=== PATIENT | female | born 1980 | race Caucasian/White ===

== ENCOUNTER 2016-04-25 05:43 | Emergency (ER) | payer OTHER ==
[~2016-04-25] VITALS: Ht 160 cm; Wt 95.3 kg
[~2016-04-25 05:43] MED LIST: FOLIC ACID 1 MG PO; ONDANSETRON4 M1 SL; PROTONIX 40MG T40 MG PO; REGLAN INJ10 MG/2 M1 PO; VITAFOL-ONE1 SGL PO; VITAMIN B1100 MG PO; Vitamin B6 PO; ZOFRAN 4MG ORALL4 MG PO; ZOFRAN ODT4 MG PO
--- NOTE | 2016-04-25 06:05 | ED GI/GU/ABDOMINAL COMPLAINT ---
See Addendum History of Present Illness General Chief Complaint: Chest Pain Stated Complaint: CP Source: patient, old records Exam Limitations: no limitations Vital Signs & Intake/Output Vital Signs & Intake/Output Vital Signs Date Time Temp Pulse Resp B/P Pulse O2 O2 Flow FiO2 Ox Delivery Rate 04/25 1143 96.9 74 15 92/60 97 Room Air Room Air 04/25 0938 98.1 79 18 162/95 100 Room Air 04/25 0556 Room Air 04/25 0551 97.6 77 20 144/102 100 Room Air Allergies Coded Allergies: Penicillins (Severe, HIVES 04/25/16) Reconcile Medications No Known Home Medications Triage Note: PT TO TRIAGE FROM HOME C/O 01/31 CHEST PAIN THAT WOKE HER OUT OF HER SLEEP. PT DENIES SOB, DENIES PAIN ANYWHERE ELSE. Triage Nurses Notes Reviewed? yes ? n Is pt currently ? No HPI: Patient presents for evaluation of an abrupt onset of severe sharp epigastric abdominal pain that began about 20 minutes prior to arrival. Patient states the pain awoke her from sleep. She tried taking water and Advil without improvement. After that however she states she began feeling short of breath that may have been due to anxiety. The pain is described as constant and worse with deep breathing, movement and lying down. She denies any associated sweating. She denies any prior episodes. (JUWAN NELSON,CHUCKY Avila) Past History Travel History Traveled to [place] past 21 day No Medical History Any Pertinent Medical History? see below for history History of MRSA: No History of VRE: No History of CDIFF: No Surgical History Surgical History: hip replacement (BILATERAL) Psychosocial History Who do you live with Spouse What is your primary language Cook Islander Tobacco Use: Never used ETOH Use: denies use Family History Hx Contributory? No (NO HX OF CHOLECYSTECTOMY) (CHUCKY ECHEVERRIA MD) Review of Systems Review of Systems Constitutional: Reports: no symptoms. EENTM: Reports: no symptoms. Respiratory: Reports: no symptoms. Cardiovascular: Reports: no symptoms. GI: Reports: see HPI. Genitourinary: Reports: no symptoms. Musculoskeletal: Reports: no symptoms. Skin: Reports: no symptoms. Neurological/Psychological: Reports: no symptoms. Hematologic/Endocrine: Reports: no symptoms. Immunologic/Allergic: Reports: no symptoms. All Other Systems: Reviewed and Negative (JUWAN NELSON,CHUCKY Avila) Physical Exam Physical Exam Gastrointestinal: see below Comments: Gen.: Well-nourished, well-developed, no acute respiratory distress. Moderate distress secondary to pain. Head: Normocephalic, atraumatic. Eyes: Normal inspection bilaterally Ears: Normal inspection bilaterally Nose: Normal inspection Throat/mouth : Moist mucosa Neck: Supple, full range of motion, no goiter Heart: Regular rate and rhythm, no murmurs rubs or gallops Lungs: Clear to auscultation bilaterally with normal air entry Chest: Nontender Back: Normal range of motion Abdomen: Soft, epigastric and right upper quadrant abdominal tenderness with brief voluntary guarding but no rebound, nondistended, normal bowel sounds Extremities: Normal range of motion grossly, equal radial pulses, no cyanosis clubbing or edema Neurologic: Cranial nerves grossly intact, speech is clear Skin: warm and dry Psychiatric: Calm, cooperative, no apparent delusions or hallucinations Core Measures ACS in differential dx? No Severe Sepsis Present: No Septic Shock Present: No (JUWAN NELSON,CHUCKY Avila) Progress Differential Diagnosis: cholecystitis, hepatitis, pancreatitis, GALLSTONES Plan of Care: Orders Procedure Date/time Status URINALYSIS 04/25 601 Complete LIPASE 04/25 601 Complete HUMAN BETA HCG SCREEN 04/25 601 Complete COMPREHENSIVE METABOLIC PANEL 04/25 601 Complete CBC WITHOUT DIFFERENTIAL 04/25 601 Complete EKG 04/25 0545 Active Laboratory Tests 04/25/16 0944: Urine Color YEL, Urine Clarity CLEAR, Urine pH 6.5, Ur Specific [place] 1.010, Urine Protein NEG, Urine Ketones NEG, Urine Nitrite NEG, Urine Bilirubin NEG, Urine Urobilinogen 0.2, Ur Leukocyte Esterase NEG, Ur Microscopic EXAM NOT REQUIRED, Urine Hemoglobin NEG, Urine Glucose NEG 04/25/16 0614: Anion Gap 13, Estimated GFR > 60, BUN/Creatinine Ratio 21.7, Glucose 113 H, Calcium 9.4, Total Bilirubin 0.3, AST 16, ALT 24, Alkaline Phosphatase 73, Total Protein 7.3, Albumin 4.4, Globulin 2.9, Albumin/Globulin Ratio 1.5, Lipase 122, Total Beta HCG NEGATIVE, CBC w Diff NO MAN DIFF REQ, RBC 4.56, MCV 80.6 L, MCH 26.2 L, RDW 14.2, MPV 7.6, Gran % 64.6, Lymphocytes % 26.4, Monocytes % 6.3, Eosinophils % 2.3, Basophils % 0.4, Absolute Granulocytes 6.1, Absolute Lymphocytes 2.5, Absolute Monocytes 0.6, Absolute Eosinophils 0.2, Absolute Basophils 0, PUBS MCHC 32.5 L Initial ED EKG: NSR, rate (76) Prior EKG: unchanged Hand-Off Endorsed To: CHUCKY DOTY DO (CHUCKY ECHEVERRIA MD) Departure Departure Condition: Stable Referrals: CHRISSIE RICARDO MD (PCP/Family) Departure Forms: Customer Survey General Discharge Information Prescriptions: Current Visit Scripts No Known Home Medications (CHUCKY ECHEVERRIA MD) Departure Disposition: HOME OR SELF CARE Clinical Impression Primary Impression: Abdominal pain Referred to [facility] as new patient No Comments The patient's pain is dramatically improved. Abdomen is soft and nontender. CT scan shows dilated gallbladder but no stones or evidence of cholecystitis. Bedside ultrasound done by me failed to show any evidence of cholelithiasis. The patient was told to stop the Percocet. Follow up with GI. Review the results of the CAT scan with GI. Return to the emergency department if fever or worse. Official outpatient ultrasound of the gallbladder and liver was ordered. (CHUCKY DOTY DO) Critical Care Note Critical Care Note Comments: 04/25/16 12 PM Abdominal pain is gone. Her gallbladder was enlarged but there is no evidence of biliary ductal dilation or stones. I did a bedside ultrasound and also see distention of the gallbladder with any evidence of stone. The patient has been taking Percocet as needed for her hip pain. She status post hip replacement approximately 2 months ago. She has no shortness of breath. She does have some minimal right upper quadrant abdominal tenderness. This is not present on my exam at noon. I think she likely has acalculus cholecystitis secondary to the Percocet. She will get outpatient ultrasound and follow-up with a pharmacy services representative this week, return to the emergency department if worse (CHUCKY DOTY DO)
[2016-04-25 06:24] LABS: ABSOLUTE BASOPHIL COUNT 0 /CUMM (0.0-0.2); ABSOLUTE EOSINOPHIL COUNT 0.2 /CUMM (0.0-0.7); ABSOLUTE GRANULOCYTE CT 6.1 /CUMM (1.4-6.5); ABSOLUTE LYMPH COUNT 2.5 /CUMM (1.2-3.4); ABSOLUTE MONOCYTE COUNT 0.6 /CUMM (0.10-0.60); BASOPHIL % 0.4 % (0.0-2.0); EOSINOPHIL % 2.3 % (0-5); GRANULOCYTE % 64.6 % (42.2-75.2); HEMATOCRIT 36.8 % (37-47); MEAN CORPUSCULAR HGB 26.2 PG (27.0-31.0); MEAN CORPUSCULAR HGB CONC 32.5 G/DL (33.0-37.0); MEAN CORPUSCULAR VOLUME 80.6 FL (81.0-99.0); MEAN PLATELET VOLUME 7.6 FL (7.4-10.4); PLATELET COUNT 326 /CUMM (130-400); RBC DISTRIBUTION WIDTH 14.2 % (11.5-14.5); RED BLOOD CELL CT 4.56 /CUMM (4.20-5.40); WHITE BLOOD CELL COUNT 9.4 /CUMM (4.8-10.8)
--- NOTE | 2016-04-25 09:58 | CT SCAN REPORT ---
EXAMINATION: CT ABDOMEN AND PELVIS WITH CONTRAST CLINICAL INFORMATION: Right upper quadrant/epigastric abdominal pain and tenderness. Biliary colic. COMPARISON: None TECHNIQUE: Multidetector volumetric imaging was performed of the abdomen and pelvis before and after the IV administration of 95 mL of Optiray 320 intravenous contrast. Sagittal and coronal reformatted images were obtained on the technologist's workstation. DLP: 734 mGy-cm FINDINGS: The lung bases are clear. There is a small 6 mm low-attenuation lesion in the medial segment of the left lobe of the liver (axial image 37, series 2), too small to definitively characterize by CT. The liver is otherwise unremarkable. The gallbladder is upper normal in size measuring 5 x 8 cm. No gallstones, gallbladder wall thickening, inflammatory change or fluid around the gallbladder is appreciated by CT. No intrahepatic or extrahepatic biliary duct dilatation is seen. The spleen, pancreas, adrenal glands and kidneys are normal. Evaluation of the pelvis is limited due to artifact from bilateral hip replacements. The uterus, adnexa and bladder are not well evaluated. Visualized bowel is unremarkable. The appendix is not identified. No evidence of appendicitis is seen. There is shotty right lower quadrant small bowel mesentery lymphadenopathy. No enlarged lymph nodes are seen. There is no ascites. The abdominal aorta is normal in caliber. No hernia is seen. Review at bone windows demonstrates bilateral hip replacements. There is increased sclerosis of the left sacroiliac joint. IMPRESSION: Upper normal-sized gallbladder. No gallstones or biliary duct dilatation seen. 6 mm low-attenuation lesion in the medial segment of the left lobe of the liver, difficult to characterize due to small size. Limited evaluation of the pelvis due to artifact from bilateral hip replacements.
[2016-04-25 11:43] VITALS: BP 92/60
== END 2016-04-25 11:57 ==
LOC: ERH 05:43
PROVIDERS: Emergency Medicine
DX: R10.13 Epigastric pain (principal); R10.11 Right upper quadrant pain
CPT/HCPCS: 74177; 81003; 93005; 93010; 96374; 96375; J1885

== ENCOUNTER 2016-09-27 15:46 | Emergency (ER) | payer OTHER ==
[~2016-09-27] VITALS: Ht 160 cm; Wt 97.5 kg
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
[2016-09-27] MEDS ORDERED: IBUPROFEN600 M1 PO (19:36)
[2016-09-27] MEDS ORDERED: CYCLOBENZAPRINE10 M1 PO (19:36)
[2016-09-27] MEDS ORDERED: PERCOCET 5-3251 EACH PO (19:36)
[2016-09-27 19:40] VITALS: BP 120/74
== END 2016-09-27 19:43 ==
LOC: ERH 15:46
DX: S16.1XXA Strain of muscle, fascia and tendon at neck level, initial encounter (principal); V49.40XA Driver injured in collision with unspecified motor vehicles in traffic accident, initial encounter; Y92.410 Unspecified street and highway as the place of occurrence of the external cause